=== PATIENT | male | born 1940 | race Caucasian/White ===

== ENCOUNTER 2020-10-03 11:39 | Inpatient (IN) ==
[2020-10-03] MEDS ORDERED: SODIUM CHLORIDE 0.9% 1000ML 1,000 ML IV ONE (11:54)
--- NOTE | 2020-10-03 12:19 | Emergency Department Note ---
Impression & Plan Pneumonia due to 2019-nCoV, Acute hypotension, Acute kidney injury ED Provider Note NAME: BRANT ALMONTE AGE: 79 SEX: M : 1940 ARRIVES VIA: Walk-In INFORMANT: Patient, ED PROVIDER(S): Aries Ayala DO CHIEF COMPLAINT: Generalized weakness HPI: The patient is a 79-year-old male who presented to the emergency department for multiple complaints. The patient was seen in our facility recently with similar complaints. At that time he was having mostly GI symptoms including loose bowel movements. He states that the symptoms have since improved. He was diagnosed with COVID-19 infection while he was in the emergency department. He has been trying to keep up with his p.o. intake but states has had decreased p.o. intake no appetite and generalized weakness. He states his bowel movements are not loose. He denies having any black or bloody bowel movements. He denies having any chest pain. He states he has noticed some dizziness especially upon standing. He is also noticed a fever. The patient was not seen by his primary care physician. He presented back to the emergency department for for more evaluation. ROS: See above HPI for pertinent positives & negatives. A total of 10 systems reviewed and were otherwise negative. PAST MEDICAL HISTORY: See Below PAST SURGICAL HISTORY: See Below FAMILY HISTORY: See Below SOCIAL HISTORY: See Below HOME MEDICATIONS: See Below ALLERGIES: See Below VITALS: See Below PHYSICAL EXAMINATION: GENERAL: Patient is awake alert in no acute distress patient is resting comfortably and showing no signs of anxiety EYES: The conjunctivae are clear. The pupils are round and reactive. EARS, NOSE, MOUTH AND THROAT: The nose is without any evidence of any deformity. Mucous members are dry. NECK: The neck is nontender and supple. RESPIRATORY: Diminished breath sounds are noted in the left lung field. There were rales in the right lung field. Mild tachypnea and conversational dyspnea was noted. CARDIOVASCULAR: Tachycardic and irregular rhythm was noted to auscultation. There is no definite murmur. GASTROINTESTINAL: The abdomen is soft. Abdomen is nontender. MUSCULOSKELETAL/EXTREMITIES: There is no evidence of gross deformity full range of motion is noted in the hips and shoulders. SKIN: There is no obvious evidence of any rash. There are no petechiae, pallor or cyanosis noted. NEUROLOGIC: Patient is awake alert and oriented x3 strength is symmetric patellar reflexes are 2+ bilaterally MEDICAL DECISION MAKING: The patient is a 79-year-old male who presented to the emergency department for an evaluation of generalized weakness. The patient was seen in our facility recently for similar complaints. He was diagnosed with COVID-19. At that time his symptoms were mostly GI in nature. He presents back to the emergency department today because of ongoing symptoms except now he is hypotensive and has some upper respiratory symptoms. The patient was found no signs of pneumonia on chest x-ray. He was treated with IV fluids IV antibiotics and IV Decadron. I discussed the patient's laboratory and radiographic studies with him. Because of the extent of his symptoms I discussed this case with the on- call [facility] hospitalist. They have agreed to evaluate the patient in the emergency department for further management and disposition. Triage Nursing notes reviewed. Prior medical records reviewed Vital Signs: reviewed and remarkable for hypotension Differential diagnosis: Infection, dehydration, metabolic abnormality, hypo/hyperglycemia, electrolyte disturbance, anemia, hypoxia, cardiac sources, intracerebral event, toxicologic, neurologic, as well as other pathologies. ER treatment provided: See below Diagnostics interpreted by me: ECG: EKG was obtained in the emergency department. My interpretation is atrial fibrillation at [address] segment abnormalities were noted. There was no PVCs. No previous tracing was available for comparison. Cardiac Monitoring: An order was placed for continuous cardiac monitoring. The monitor shows a rate of 95 bpm with sinus rhythm. Laboratory studies: As stated above and show below. Imaging studies: See below Consultation(s): 1410: I discussed this case with Dr. Noble he is agreed to evaluate the patient in the emergency department for further management and disposition. Past Med/Surg History Medical History (Updated 10/03/20 @ 14:09 by Aries Ayala DO) Atrial fibrillation BPH (benign prostatic hyperplasia) Chronic kidney disease STAGE III GERD (gastroesophageal reflux disease) Hx of polycystic kidney disease Hx of squamous cell carcinoma of skin Hyperlipidemia Hypertension Osteoarthritis HANDS AND NECK Surgical History Difficult intubation History of appendectomy History of colonoscopy History of herniorrhaphy RIGHT ING History of thyroidectomy, subtotal RIGHT LOBE AND ISTHMUS History of tonsillectomy Family History Father Family history of diabetes mellitus Social History Smoking Status: Never smoker Cigarettes Per Day: 27 YR; Hx Alcohol Use: Yes Alcohol type: beer and wine Hx Substance Use: No Preferred Language: Armenian Communication Ability: Effective Beliefs That Will Affect Care: None Current Living Situation: Spouse Feels Safe at Home: Yes Assistive Devices: Glasses Allergies Allergies Allergy/AdvReac Type Severity Reaction Status Date / Time poison oak extract AdvReac Intermediate Swelling Verified 10/03/20 13:47 of the Eye dermabond AdvReac Mild Redness of Uncoded 10/03/20 13:47 Skin Home Meds Home Medications Medication Instructions Recorded Confirmed cholecalciferol (vitamin D3) 25 mcg PO QDD 09/29/20 10/03/20 [Vitamin D3] finasteride [Proscar] 5 mg PO QAM 09/29/20 10/03/20 metoprolol succinate [Toprol XL] 25 mg PO QAM 09/29/20 10/03/20 Previous Rx's Medication Instructions Recorded ondansetron HCl [Zofran] 4 mg PO TID PRN 5 Days #15 tab 09/29/20 Results & Data (ED) Vital Signs Vital Signs - 24 hr 10/03/20 11:42 10/03/20 11:57 10/03/20 13:03 Pulse Rate 112 H Pulse Rate [Apical] 92 H Respiratory Rate 18 18 Respiratory Effort / Characteristics Non-Labored Spontaneous Respiratory Depth Normal Respiratory Pattern Regular Blood Pressure 82/53 L Blood Pressure [Left Arm] 94/57 L Blood Pressure Mean 62 Blood Pressure Mean [Left Arm] 69 Pulse Oximetry 92 94 95 Oxygen Delivery Method Room Air Room Air Room Air Sepsis Recent Fever Within 48 Hours Yes Sepsis New/Unexplained Change in Mental Status N/A Sepsis Action Taken by Nursing No Action Required Home Medications Current Medication List: was personally reviewed by me Laboratory Data Attestation: I reviewed the patient's lab results. Result diagrams: 10/03/20 12:16 10/03/20 12:16 Lab Results 10/03/20 10/03/20 10/03/20 Range/Units 12:16 12:16 12:16 WBC 6.57 (4.8-10.8) K/uL RBC 4.01 L (4.7-6.1) M/uL Hgb 13.0 L (14.0-18.0) g/dL Hct 35.9 L (42-52) % MCV 89.5 (80-100) fL MCH 32.4 (25-34) pg MCHC 36.2 H (32-36) g/dL RDW Std Deviation 43.5 (36.4-46.3) fL RDW Coeff of Fortino 13.2 (11.5-14.5) % Plt Count 238 (130-400) K/uL MPV 9.9 (7.4-10.4) fL Immature Gran % (Auto) 0.3 % Neut % (Auto) 82.8 % Lymph % (Auto) 12.8 % [place] % (Auto) 3.8 % Eos % (Auto) 0.0 % Baso % (Auto) 0.3 % Neut # (Auto) 5.44 (1.4-6.5) K/uL Lymph # (Auto) 0.84 L (1.2-3.4) K/uL [place] # (Auto) 0.25 (0.11-0.59) K/uL Eos # (Auto) 0.00 (0-0.5) K/uL Baso # (Auto) 0.02 (0-0.2) K/uL Immature Gran # (Auto) 0.02 (0.00-0.02) K/uL PT 11.7 (9.0-12.0) Seconds INR 1.1 (0.9-1.1) APTT 25.5 (21.0-31.0) Seconds PTT Ratio 0.9 Sodium 135 L (136-145) mmol/L Potassium 4.0 (3.5-5.1) mmol/L Chloride 106 (98-107) mmol/L Carbon Dioxide 21 (21-32) mmol/L Anion Gap 8.0 (3-11) BUN 43 H (7-18) mg/dl Creatinine 2.61 H (0.6-1.4) mg/dl Est Cr Clr Drug Dosing 23.7 ml/min Est GFR ( Amer) 25.9 Est GFR (Non-Af Amer) 22.3 BUN/Creatinine Ratio 16.4 (10-20) Glucose 125 H (70-99) mg/dl Lactate (0.4-2.0) mmol/L Calcium 9.1 (8.5-10.1) mg/dl Magnesium 2.2 (1.8-2.4) mg/dl Total Bilirubin 0.5 (0.2-1) mg/dl AST 45 H (15-37) U/L ALT 43 (12-78) U/L Alkaline Phosphatase 53 (45-117) U/L Troponin I 0.027 (0-0.045) ng/ml Total Protein 7.3 (6.4-8.2) gm/dl Albumin 2.8 L (3.4-5.0) gm/dl Globulin 4.5 H (2.5-4.0) gm/dl Albumin/Globulin Ratio 0.6 L (0.9-2) Procalcitonin (0-0.5) ng/ml 10/03/20 10/03/20 Range/Units 12:16 12:16 WBC (4.8-10.8) K/uL RBC (4.7-6.1) M/uL Hgb (14.0-18.0) g/dL Hct (42-52) % MCV (80-100) fL MCH (25-34) pg MCHC (32-36) g/dL RDW Std Deviation (36.4-46.3) fL RDW Coeff of Fortino (11.5-14.5) % Plt Count (130-400) K/uL MPV (7.4-10.4) fL Immature Gran % (Auto) % Neut % (Auto) % Lymph % (Auto) % [place] % (Auto) % Eos % (Auto) % Baso % (Auto) % Neut # (Auto) (1.4-6.5) K/uL Lymph # (Auto) (1.2-3.4) K/uL [place] # (Auto) (0.11-0.59) K/uL Eos # (Auto) (0-0.5) K/uL Baso # (Auto) (0-0.2) K/uL Immature Gran # (Auto) (0.00-0.02) K/uL PT (9.0-12.0) Seconds INR (0.9-1.1) APTT (21.0-31.0) Seconds PTT Ratio Sodium (136-145) mmol/L Potassium (3.5-5.1) mmol/L Chloride (98-107) mmol/L Carbon Dioxide (21-32) mmol/L Anion Gap (3-11) BUN (7-18) mg/dl Creatinine (0.6-1.4) mg/dl Est Cr Clr Drug Dosing ml/min Est GFR ( Amer) Est GFR (Non-Af Amer) BUN/Creatinine Ratio (10-20) Glucose (70-99) mg/dl Lactate 1.4 (0.4-2.0) mmol/L Calcium (8.5-10.1) mg/dl Magnesium (1.8-2.4) mg/dl Total Bilirubin (0.2-1) mg/dl AST (15-37) U/L ALT (12-78) U/L Alkaline Phosphatase (45-117) U/L Troponin I (0-0.045) ng/ml Total Protein (6.4-8.2) gm/dl Albumin (3.4-5.0) gm/dl Globulin (2.5-4.0) gm/dl Albumin/Globulin Ratio (0.9-2) Procalcitonin 1.06 H (0-0.5) ng/ml Administered Medications Discontinued Medications Sodium Chloride (Nss 1000ml) 1,000 mls @ 999 mls/hr IV .Q1H1M ONE Stop: 10/03/20 12:54 Last Infusion: 10/03/20 14:03 Dose: 0 mls/hr Documented by: [id number] Admin: 10/03/20 12:18 Dose: 999 mls/hr Documented by: [id number] Imaging Data Radiologist's Impression: Patient: BRANT ALMONTE Admit Date: 10/03/20 MR#: [id number] Address1: [address] [place] [address] Acct ID:[id number] Address2: Date: 1940 [facility] Zip: [place] [address] Age: 79 Location: ED Sex: M Room/Bed: Att Phy: Diagnosis: covid+, weakness, fever Deysi Phy: Jose Martinez III, MD Service Date: 10/03/20 Fam Phy: Interpreting Phy: Arnold Alatorre MD Admit Phy: Ordering Phy: Aries Ayala DO cc: ~ XR chest 1V portable HISTORY: Shortness of breath. SEPSIS COMPARISON: Chest 09/29/2020. FINDINGS: Peripheral hazy airspace opacity within the right midlung zone. Mild interstitial thickening persists. No pneumothorax. No pleural effusions. The heart remains mildly enlarged. IMPRESSION: 1. Hazy airspace opacity the right midlung zone. This may represent a viral pneumonia. 2. Cardiomegaly and mild interstitial thickening persists. ACT 112: Negative or not required by law. Electronically signed by: Arnold Alatorre M.D. 10/03/2020 1:10 PM Dictated: 10/03/20 1307 Transcribed: 10/03/20 1307 Blood Pressure Blood Pressure Findings: Low blood pressure Blood Pressure Disposition: further management by hospitalist Discharge Plan Visit Data Chief Complaint: Fever Stated Complaint: covid+, weakness, fever ED Provider: Aries Ayala Discharge Problem: Pneumonia due to 2019-nCoV, Acute hypotension, Acute kidney injury Patient Disposition: Being Evaluated by Hospitalist Condition: Good Forms Stand Alone Forms: [facility] Prescriptions Prescriptions: No Action metoprolol succinate [Toprol XL] 25 mg tablet extended release 24 hr 25 mg PO QAM RF: 0 finasteride [Proscar] 5 mg tablet 5 mg PO QAM RF: 0 cholecalciferol (vitamin D3) [Vitamin D3] 25 mcg (1,000 unit) Tablet 25 mcg PO QDD RF: 0 ondansetron HCl [Zofran] 4 mg tablet 4 mg PO TID PRN (Reason: nausea and vomiting) 5 Days Qty: 15 RF: 0 Referrals Referrals: Jose Martinez MD [Primary Care Provider] -
[2020-10-03 12:34] LABS: Basophils # (auto) 0.02 K/uL (0-0.2); Basophils % (auto) 0.3 %; Hematocrit (blood only) 35.9 % (42-52); Immature Granulocytes # (auto) 0.02 K/uL (0.00-0.02); Immature Granulocytes % (auto) 0.3 %; Lymphocytes # (auto) 0.84 K/uL (1.2-3.4); Lymphocytes % (auto) 12.8 %; Mean Corpuscular Hemoglobin 32.4 pg (25-34); Mean Corpuscular Hgb Conc 36.2 g/dL (32-36); Mean Corpuscular Volume 89.5 fL (80-100); Mean Platelet Volume 9.9 fL (7.4-10.4); Monocytes # (auto) 0.25 K/uL (0.11-0.59); Monocytes % (auto) 3.8 %; Neutrophils # (auto) 5.44 K/uL (1.4-6.5); Neutrophils % (auto) 82.8 %; Platelet Count 238 K/uL (130-400); RDW Coefficient of Variation 13.2 % (11.5-14.5); RDW Standard Deviation 43.5 fL (36.4-46.3); Red Blood Count 4.01 M/uL (4.7-6.1); White Blood Count 6.57 K/uL (4.8-10.8)
[2020-10-03 12:45] LABS: INR 1.1 (0.9-1.1); Partial Thromboplastin Ratio 0.9; Partial Thromboplastin Time 25.5 Seconds (21.0-31.0); Prothrombin Time 11.7 Seconds (9.0-12.0)
[2020-10-03 12:47] LABS: Albumin Level 2.8 gm/dl (3.4-5.0); BUN Creatinine Ratio 16.4 (10-20); Calcium 9.1 mg/dl (8.5-10.1); Creatinine Clr Calc Pharmacy 23.7 ml/min; Est GFR (African American) 25.9; Est GFR (Non-African American) 22.3; Magnesium 2.2 mg/dl (1.8-2.4)
[2020-10-03 12:52] LABS: Albumin Globulin Ratio 0.6 (0.9-2); Bilirubin,Total 0.5 mg/dl (0.2-1); Globulin 4.5 gm/dl (2.5-4.0); Total Protein 7.3 gm/dl (6.4-8.2); Troponin I 0.027 ng/ml (0-0.045)
--- NOTE | 2020-10-03 13:11 | XRay Report ---
XR chest 1V portable HISTORY: Shortness of breath. SEPSIS COMPARISON: Chest 09/29/2020. FINDINGS: Peripheral hazy airspace opacity within the right midlung zone. Mild interstitial thickenin g persists. No pneumothorax. No pleural effusions. The heart remains mildly enlarged. IMPRESSION: 1. Hazy airspace opacity the right midlung zone. This may represent a viral pneumonia. 2. Cardiomegaly and mild interstitial thickening persists. ACT 112: Negative or not required by law. Electronically signed by: Arnold Alatorre M.D. 10/03/2020 1:10 PM
[2020-10-03] MEDS ORDERED: cefTRIAXone SODIUM 1,000 MG/50 ML BAG IV STA (13:31)
[2020-10-03] MEDS ORDERED: DEXAMETHASONE SOD INJ 10 MG/ML VIAL IV ONE (13:31)
[2020-10-03] MEDS ORDERED: SODIUM CHLORIDE 0.9% 1000ML 500 ML IV ONE (13:31)
--- NOTE | 2020-10-03 18:16 | History & Physical Report ---
Date of Service October 03, 2020 Assessment & Plan (1) COVID-19: Present on admission with weakness and dizziness COVID 19 positive on 09/29 CXR showed hazy airspace opacity the right midlung zone. Procalcitonin elevated Received IV Rocephin and Dexamethasone on admission Saturated well on RA. Denied any SOB Does not meet criteria for Remdesivir due to renal failure and no hypoxia Will hold for any additional steroid or plasma convalescent for now since pt saturated well on RA Will reassess in am and if pt desaturates or requires oxygen, will start on steroid Pt agreed to receive the Plasma convalescent if needs Will continue Rocephin IV and adding doxycycline Follow up blood cx collected in the ER Will monitor inflammatory markers such as ESR, CRP, Ferritin, LDH Continue monitor closely MARGARITA on CKD stage 4 Creatinine on admission 2.6, baseline 2-2.3 Received IVF, will continue IVF hydration Will avoid nephrotoxic agents Continue monitor BMP Chronic Afib Rate controlled on Metoprolol Not on anticoagulant since pt declined it Continue monitor Elevated glucose Will check Hba1c in am DVT px will adjust Lovenox dose to 30mg subq due to CKD 4 (discussed with pharmacy) CODE status DNR History of Present Illness Chief Complaint: Dizziness/Weakness Primary Care Provider: Jose Martinez MD 79-year-old male with past medical history of A. fib, CKD stage IV, BPH, hypertension, presented to the ER with symptom of weakness and dizziness. Patient was recently in the ER on Tuesday due to GI symptom of nausea and diarrhea then he was diagnosed with COVID-19. He said that he was giving IV fluid and felt better and discharged home. He said that he was continued to have diarrhea but today he felt weak associated with dizziness while walking. He said that he has been having chills and sweating. He said that his appetite has been poor. He said that he has a dry cough but denies any other respiratory symptoms such as shortness of breath. He was hypotensive on admission with BP in the 80's systolic. CXR showed hazy airspace opacity the right midlung zone. Denies any chest pain, palpitation, fever and SOB. Allergies Allergy/AdvReac Type Severity Reaction Status Date / Time poison oak extract AdvReac Intermediate Swelling Verified 10/03/20 13:47 of the Eye dermabond AdvReac Mild Redness of Uncoded 10/03/20 13:47 Skin Home Medications Medication Instructions Recorded Confirmed Type cholecalciferol (vitamin D3) 25 mcg PO QDD 09/29/20 10/03/20 History [Vitamin D3] finasteride [Proscar] 5 mg PO QAM 09/29/20 10/03/20 History metoprolol succinate [Toprol XL] 25 mg PO QAM 09/29/20 10/03/20 History ondansetron HCl [Zofran] 4 mg PO TID PRN 5 Days #15 tab 09/29/20 10/03/20 Rx Past Med/Surg History Medical History (Updated 10/03/20 @ 14:09 by Aries Ayala DO) Atrial fibrillation BPH (benign prostatic hyperplasia) Chronic kidney disease STAGE III GERD (gastroesophageal reflux disease) Hx of polycystic kidney disease Hx of squamous cell carcinoma of skin Hyperlipidemia Hypertension Osteoarthritis HANDS AND NECK Surgical History Difficult intubation History of appendectomy History of colonoscopy History of herniorrhaphy RIGHT ING History of thyroidectomy, subtotal RIGHT LOBE AND ISTHMUS History of tonsillectomy Family History Father Family history of diabetes mellitus Social History Smoking Status: Never smoker Cigarettes Per Day: 27 YR; Hx Alcohol Use: Yes Alcohol type: beer and wine Hx Substance Use: No Preferred Language: Georgian Communication Ability: Effective Beliefs That Will Affect Care: None Current Living Situation: Spouse Feels Safe at Home: Yes Assistive Devices: Glasses Review of Systems Review of Systems: All systems reviewed & are unremarkable except as noted in HPI & below Physical Exam Physical Exam: General- No acute distress Head- atraumatic Eyes- PERRL, EOMI, ENT- oropharynx clear Neck- supple, no JVD Lungs- clear to auscultation Heart- irregular rhythm; no murmur Abdomen- normal bowel sounds, soft, nontender Extremities- no calf tenderness Neuro- alert, oriented x 3; PERRL, EOMI; no facial palsy; no dysarthria Skin- warm & dry Results & Data Results & Data ([facility]) Vital Signs (Past 12 Hours) Vital Signs Pulse Pulse Resp BP BP Pulse Ox 10/03/20 15:30 94 10/03/20 14:13 92 H 107/70 94 10/03/20 13:03 92 H 18 94/57 L 95 10/03/20 11:57 94 10/03/20 11:42 112 H 18 82/53 L 92 Diagnostic Findings XR chest 1V portable HISTORY: Shortness of breath. SEPSIS COMPARISON: Chest 09/29/2020. FINDINGS: Peripheral hazy airspace opacity within the right midlung zone. Mild interstitial thickening persists. No pneumothorax. No pleural effusions. The heart remains mildly enlarged. IMPRESSION: 1. Hazy airspace opacity the right midlung zone. This may represent a viral pneumonia. 2. Cardiomegaly and mild interstitial thickening persists. ACT 112: Negative or not required by law. Electronically signed by: Arnold Alatorre M.D. 10/03/2020 1:10 PM Dictated: 10/03/20 1307Transcribed: 10/03/20 1307
[2020-10-03 19:36] LABS: Appearance Urine Clear (Clear); Bacteria Urine Automated Negative (Negative); Bilirubin Urine Negative (Negative); Blood Urine Trace (Negative); Color Urine Yellow; Epithelial Cell Urine Auto 20-30 /lpf (0-5); Glucose Urine UA Negative (Negative); Ketones Urine Trace (Negative); Leukocyte Esterase Urine Negative (Negative); Nitrite Urine Negative (Negative); Protein Urine 2+ (Negative); RBC Urine Automated 0-4 /hpf (0-4); Specific Gravity Urine 1.016 (1.000-1.030); Urobilinogen Urine Negative (Negative)
[2020-10-04] MEDS: SODIUM CHLORIDE 0.9% 1000ML 1,000 ML IV SCH ×2 (01:01→13:59)
[2020-10-04] MEDS ORDERED: ONDANSETRON 4 MG OD TAB PO PRN (01:12)
[2020-10-04] MEDS ORDERED: DOXYCYCLINE HYCLATE 100 MG in DEXTROSE 5% 100 ML IV ONE (01:15)
[2020-10-04] MEDS: CHOLECALCIFEROL 1,000 UNITS 25 MCG TAB PO SCH ×2 (02:09→15:46)
--- NOTE | 2020-10-04 06:20 | Electrocardiogram Report ---
Test Reason : Blood Pressure : / mmHG Vent. Rate : 100 BPM Atrial Rate : 104 BPM P-R Int : 000 ms QRS Dur : 092 ms QT Int : 320 ms P-R-T Axes : 000 065 019 degrees QTc Int : 412 ms Atrial fibrillation Incomplete right bundle branch block Abnormal ECG When compared with ECG of 29-SEP-2020 17:48, No significant change was found Confirmed by Evgeny Herrera ([id number]) on 10/04/2020 6:20:17 AM Referred By: REFERRED SELF Confirmed By:Evgeny Herrera
[2020-10-04 06:26] LABS: Hematocrit (blood only) 34.4 % (42-52); Hemoglobin 12.5 g/dL (14.0-18.0); Mean Corpuscular Hemoglobin 33.1 pg (25-34); Mean Corpuscular Hgb Conc 36.3 g/dL (32-36); Mean Platelet Volume 9.8 fL (7.4-10.4); Platelet Count 254 K/uL (130-400); RDW Coefficient of Variation 13.4 % (11.5-14.5); RDW Standard Deviation 44.9 fL (36.4-46.3); Red Blood Count 3.78 M/uL (4.7-6.1); White Blood Count 5.13 K/uL (4.8-10.8)
[2020-10-04 07:02] LABS: Albumin Level 2.5 gm/dl (3.4-5.0); BUN Creatinine Ratio 18.2 (10-20); Calcium 8.4 mg/dl (8.5-10.1); Creatinine Clr Calc Pharmacy 27.1 ml/min; Est GFR (African American) 31.7; Est GFR (Non-African American) 27.3; Potassium 4.6 mmol/L (3.5-5.1)
[2020-10-04 07:21] LABS: Albumin Globulin Ratio 0.6 (0.9-2); Bilirubin,Total 0.3 mg/dl (0.2-1); C Reactive Protein 13.8 mg/dl (0-0.29); Ferritin 2541.2 ng/ml (8-388); Globulin 4.5 gm/dl (2.5-4.0)
[2020-10-04 07:30] LABS: Estimated Average Glucose 131 mg/dl; Hemoglobin A1C 6.2 % (4.5-5.6)
[2020-10-04] MEDS: FINASTERIDE 5 MG TAB PO SCH (07:59)
[2020-10-04] MEDS: METOPROLOL SUCC 25MG EXT REL TAB PO SCH (07:59)
[2020-10-04] MEDS: ENOXAPARIN INJ 30 MG/0.3 ML SYR SQ SCH (08:00)
[2020-10-04] MEDS: dexAMETHasone 1 MG TAB PO SCH (10:06)
[2020-10-04] MEDS: cefTRIAXone SODIUM 2,000 MG in DEXTROSE 5% 50 ML IV SCH (14:23)
[2020-10-04] MEDS: DOXYCYCLINE HYCLATE 100 MG in DEXTROSE 5% 100 ML IV SCH (15:49)
--- NOTE | 2020-10-04 18:57 | Hospitalist Progress Note ---
Date of Service October 04, 2020 Assessment & Plan (1) Pneumonia due to 2019-nCoV: Presented on admission with weakness and dizziness. Symptoms have been ongoing for approximately 1 to 1-1/2 weeks. Patient appears to have been worse then gotten somewhat better now have gotten worse in the last few days. He reports diarrhea having improved/resolved. He does not meet criteria for remdesivir due to renal failure. Although there is not an oxygen requirement he is worse clinically and within approximately 10 days of symptom onset. He also is hospitalized with a pneumonia, so we are continuing Decadron. We discussed the risks and benefits of convalescent plasma and decided against it. We will continue Rocephin and doxycycline antibiotics although this is likely a viral pneumonia. Will trend inflammatory markers including CRP and will trend pro calcitonin every few days. Will monitor clinical progress. Continue supportive care. (2) Acute renal failure (ARF): Resolved, Stage IV CKD at baseline per his report and per recent Nephrology note in outpatient records. Baseline creatinine is 2-2.3 and he is currently there now. IVF were stopped and he is tolerating PO. Cont to monitor on bloodwork. (3) CKD (chronic kidney disease), stage IV: Plan as above. Avoid nephrotoxic medications and renally dose medications as needed. (4) Atrial fibrillation: On aspirin, refused anticoagulation in the past. Has seen Dr. Lomeli from electrophysiology. He is rate controlled. He is asymptomatic. Continue current care. (5) DVT prophylaxis: Lovenox 30mg daily DNR/DNI Dispo-to home when medically stable and clinically improved. Mariya Salcedo DO [facility] Hospitalist Admission and Anticipated Discharge Date Admission Date: October 03, 2020 Subjective cc: covid pneumonia -patient reports feeling somewhat better since admission -we discussed in detail the therapies available for COVID and reviewed the history of hydroxychloroquine use -he reports fatigue but no pain or SOB -tolerating PO, afebrile and not requiring oxygen supplementation at this time. Review of Systems Review of Systems: All systems reviewed & are unremarkable except as noted in Subjective Physical Exam Physical Exam: CONSTITUTIONAL: WNWD, vitals as above, generally well- appearing, but appears run down EYES: normal conjunctivae, no scleral icterus ENT: external ear and nose normal, oropharynx clear, MMM RESPIRATORY: clear to auscultation bilaterally, no crackles, rales or wheezes, normal respiratory effort CARDIOVASCULAR: regular rate and rhythm, S1 and 2 heard without murmurs, gallops or rubs, no JVD, no peripheral edema GASTROINTESTINAL: soft, nontender, nondistended, no guarding MUSCULOSKELETAL: strength 5/5 throughout, head is normocephalic and atraumatic SKIN: warm and dry NEUROLOGIC: CN 2-12 grossly intact, normal cognition, normal speech, no tremor, no gross focal deficits. PSYCHIATRIC: alert cooperative and oriented to person, place and time. = Results & Data Results & Data ([facility]) Vital Signs (Past 12 Hours) Vital Signs Temp Pulse Resp BP Pulse Ox 10/04/20 16:09 36.7 C 91 H 16 108/69 96 10/04/20 07:42 36.7 C 97 H 18 119/73 96 Laboratory Results Short CBC 10/04/20 Range/Units 05:29 WBC 5.13 (4.8-10.8) K/uL Hgb 12.5 L (14.0-18.0) g/dL Hct 34.4 L (42-52) % Plt Count 254 (130-400) K/uL BMP 10/04/20 05:29 Sodium 136 Potassium 4.6 Chloride 107 Carbon Dioxide 21 BUN 40 H Creatinine 2.21 H D Glucose 133 H Calcium 8.4 L Liver Function 10/04/20 Range/Units 05:29 Total Bilirubin 0.3 (0.2-1) mg/dl AST 37 (15-37) U/L ALT 38 (12-78) U/L Alkaline Phosphatase 51 (45-117) U/L Albumin 2.5 L (3.4-5.0) gm/dl Urine 10/03/20 Range/Units 19:25 Urine Color Yellow Urine Appearance Clear (Clear) Urine pH 5.0 (4.5-7.5) Ur Specific [place] 1.016 (1.000-1.030) Urine Protein 2+ H (Negative) Urine Glucose (UA) Negative (Negative) Medications Administered Current Inpatient Medications Dexamethasone (Dexamethasone 1 Mg Tab) 6 mg PO DAILY LISANDRA Stop: 11/03/20 09:59 Last Admin: 10/04/20 10:06 Dose: 6 mg Documented by: Enoxaparin Sodium (Enoxaparin Inj 30 Mg/0.3 Ml Syr) 30 mg SQ QAM LISANDRA Stop: 11/03/20 08:59 Last Admin: 10/04/20 08:00 Dose: 30 mg Documented by: Finasteride (Finasteride 5 Mg Tab) 5 mg PO [facility] Stop: 11/03/20 08:59 Last Admin: 10/04/20 07:59 Dose: 5 mg Documented by: Ceftriaxone Sodium 2,000 mg/ (Dextrose) 70 mls @ 100 mls/hr IV Q24H [facility]; Protocol Stop: 10/11/20 13:59 Last Infusion: 10/04/20 15:48 Dose: Infused Documented by: Doxycycline Hyclate 100 mg/ (Dextrose) 110 mls @ 50 mls/hr IV Q12H [facility] Stop: 10/11/20 15:59 Last Admin: 10/04/20 15:49 Dose: 50 mls/hr Documented by: Metoprolol Succinate (Metoprolol Succ 25mg Ext Rel Tab) 25 mg PO [facility] Stop: 11/03/20 08:59 Last Admin: 10/04/20 07:59 Dose: 25 mg Documented by: Ondansetron HCl (Ondansetron 4 Mg Od Tab) 4 mg PO TID PRN PRN Reason: nausea and vomiting Stop: 11/03/20 01:11 Vitamin D (Cholecalciferol 1,000 Units 25 Mcg Tab) 1,000 units PO QDD [facility] Stop: 11/03/20 01:00 Last Admin: 10/04/20 15:46 Dose: 1,000 units Documented by:
[2020-10-05] MEDS: DOXYCYCLINE HYCLATE 100 MG in DEXTROSE 5% 100 ML IV SCH ×2 (04:50→16:22)
[2020-10-05] MEDS: ENOXAPARIN INJ 30 MG/0.3 ML SYR SQ SCH (08:03)
[2020-10-05] MEDS: dexAMETHasone 1 MG TAB PO SCH (08:03)
[2020-10-05] MEDS: METOPROLOL SUCC 25MG EXT REL TAB PO SCH (08:03)
[2020-10-05] MEDS: FINASTERIDE 5 MG TAB PO SCH (08:03)
[2020-10-05 11:00] LABS: Calcium 9.3 mg/dl (8.5-10.1); Creatinine Clr Calc Pharmacy 25.4 ml/min; Est GFR (African American) 29.2; Est GFR (Non-African American) 25.2; Potassium 4.2 mmol/L (3.5-5.1)
[2020-10-05] MEDS: cefTRIAXone SODIUM 2,000 MG in DEXTROSE 5% 50 ML IV SCH (13:22)
--- NOTE | 2020-10-05 14:36 | Hospitalist Progress Note ---
Date of Service October 05, 2020 Assessment & Plan (1) Pneumonia due to 2019-nCoV: Presented on admission with weakness and dizziness. Symptoms have been ongoing for approximately 1 to 1-1/2 weeks. Patient appears was better then got worse in the last few days. He reports diarrhea having improved/resolved. He did not meet criteria for remdesivir due to renal failure. Although there was not an oxygen requirement he was worse clinically and within approximately 10 days of symptom onset so decadron started. He also is hospitalized with a pneumonia, so we are continuing Decadron. We discussed the risks and benefits of convalescent plasma and decided against it. We will continue Rocephin and doxycycline antibiotics although this is likely a viral pneumonia. Will trend inflammatory markers including CRP and will trend pro calcitonin every few days. Will monitor clinical progress. Continue supportive care. (2) Acute renal failure (ARF): Resolved, Stage IV CKD at baseline per his report and per recent Nephrology note in outpatient records. Baseline creatinine is 2-2.3 and he is currently there now. IVF were stopped and he is tolerating PO. Cont to monitor on bloodwork. (3) CKD (chronic kidney disease), stage IV: Plan as above. Avoid nephrotoxic medications and renally dose medications as needed. (4) Atrial fibrillation: On aspirin, refused anticoagulation in the past. Has seen Dr. Lomeli from electrophysiology. He is rate controlled. He is asymptomatic. Continue current care. (5) DVT prophylaxis: Lovenox 30mg daily DNR/DNI Dispo-to home when medically stable and clinically improved. Mariya [facility]ced[facility] and [facility]tic[facility]ated Discharge Date Admission Date: October 03, 2020 Subjective cc: covid pneumonia -patient reports feeling somewhat better since admission -afebrile, tolerating PO -had a shower this morning -ambulating some but still reports significant weakness -not requiring oxygen -no increased respiratory symptoms overnight. Review of Systems Review of Systems: All systems reviewed & are unremarkable except as noted in Subjective Physical Exam Physical Exam: CONSTITUTIONAL: WNWD, vitals as above, generally well- appearing, NAD ENT: external ear and nose normal, oropharynx clear, MMM RESPIRATORY: clear to auscultation bilaterally, no crackles, rales or wheezes, normal respiratory effort CARDIOVASCULAR: regular rate and rhythm, S1 and 2 heard without murmurs, gallops or rubs, no JVD, no peripheral edema GASTROINTESTINAL: soft, nontender, nondistended, no guarding MUSCULOSKELETAL: strength 5/5 throughout, head is normocephalic and atraumatic SKIN: warm and dry NEUROLOGIC: CN 2-12 grossly intact, normal cognition, normal speech, no tremor, no gross focal deficits. PSYCHIATRIC: alert cooperative and oriented to person, place and time. Results & Data Results & Data ([facility]) Vital Signs (Past 12 Hours) Vital Signs Temp Pulse Resp BP Pulse Ox 10/05/20 06:47 36.5 C 90 16 108/80 94 Laboratory Results [facility] 10/05/20 10:12 Sodium 137 Potassium 4.2 Chloride 106 Carbon Dioxide 22 BUN 45 H Creatinine 2.36 H Glucose 165 H Calcium 9.3 Medications Administered Current Inpatient Medications Dexamethasone (Dexamethasone 1 Mg Tab) 6 mg PO DAILY [facility] Stop: 11/03/20 09:59 Last Admin: 10/05/20 08:03 Dose: 6 mg Documented by: Enoxaparin Sodium (Enoxaparin Inj 30 Mg/0.3 Ml Syr) 30 mg SQ [facility] Stop: 11/03/20 08:59 Last Admin: 10/05/20 08:03 Dose: 30 mg Documented by: Finasteride (Finasteride 5 Mg Tab) 5 mg PO [facility] Stop: 11/03/20 08:59 Last Admin: 10/05/20 08:03 Dose: 5 mg Documented by: Ceftriaxone Sodium 2,000 mg/ (Dextrose) 70 mls @ 100 mls/hr IV Q24H [facility]; Protocol Stop: 10/11/20 13:59 Last Infusion: 10/05/20 14:05 Dose: Infused Documented by: Doxycycline Hyclate 100 mg/ (Dextrose) 110 mls @ 50 mls/hr IV Q12H [facility] Stop: 10/11/20 15:59 Last Infusion: 10/05/20 07:20 Dose: Infused Documented by: Metoprolol Succinate (Metoprolol Succ 25mg Ext Rel Tab) 25 mg PO [facility] Stop: 11/03/20 08:59 Last Admin: 10/05/20 08:03 Dose: 25 mg Documented by: Ondansetron HCl (Ondansetron 4 Mg Od Tab) 4 mg PO TID PRN PRN Reason: nausea and vomiting Stop: 11/03/20 01:11 Vitamin D (Cholecalciferol 1,000 Units 25 Mcg Tab) 1,000 units PO QDD [facility] Stop: 11/03/20 01:00 Last Admin: 10/04/20 15:46 Dose: 1,000 units Documented by:
[2020-10-05] MEDS: CHOLECALCIFEROL 1,000 UNITS 25 MCG TAB PO SCH (16:23)
[2020-10-06] MEDS: DOXYCYCLINE HYCLATE 100 MG in DEXTROSE 5% 100 ML IV SCH (04:26)
[2020-10-06 08:32] LABS: Hematocrit (blood only) 34.7 % (42-52); Hemoglobin 12.4 g/dL (14.0-18.0); Mean Corpuscular Hemoglobin 32.4 pg (25-34); Mean Corpuscular Hgb Conc 35.7 g/dL (32-36); Mean Corpuscular Volume 90.6 fL (80-100); Mean Platelet Volume 9.7 fL (7.4-10.4); Platelet Count 359 K/uL (130-400); RDW Coefficient of Variation 13.6 % (11.5-14.5); RDW Standard Deviation 45.1 fL (36.4-46.3); Red Blood Count 3.83 M/uL (4.7-6.1); White Blood Count 10.05 K/uL (4.8-10.8)
[2020-10-06] MEDS: dexAMETHasone 1 MG TAB PO SCH (08:39)
[2020-10-06] MEDS: ENOXAPARIN INJ 30 MG/0.3 ML SYR SQ SCH (08:39)
[2020-10-06] MEDS: METOPROLOL SUCC 25MG EXT REL TAB PO SCH (08:41)
[2020-10-06] MEDS: FINASTERIDE 5 MG TAB PO SCH (08:41)
[2020-10-06 09:05] LABS: BUN Creatinine Ratio 24.8 (10-20); C Reactive Protein 2.39 mg/dl (0-0.29); Calcium 8.9 mg/dl (8.5-10.1); Creatinine Clr Calc Pharmacy 31.7 ml/min; Est GFR (African American) 38.3; Potassium 4.3 mmol/L (3.5-5.1)
[2020-10-06] MEDS: cefTRIAXone SODIUM 2,000 MG in DEXTROSE 5% 50 ML IV SCH (14:01)
--- NOTE | 2020-10-06 15:03 | Discharge Summary ---
Date of Service October 06, 2020 Admission HPI Per Admitting Provider 79-year-old male with past medical history of A. fib, CKD stage IV, BPH, hypertension, presented to the ER with symptom of weakness and dizziness. Patient was recently in the ER on Tuesday due to GI symptom of nausea and diarrhea then he was diagnosed with COVID-19. He said that he was giving IV fluid and felt better and discharged home. He said that he was continued to have diarrhea but today he felt weak associated with dizziness while walking. He said that he has been having chills and sweating. He said that his appetite has been poor. He said that he has a dry cough but denies any other respiratory symptoms such as shortness of breath. He was hypotensive on admission with BP in the 80's systolic. CXR showed hazy airspace opacity the right midlung zone. Denies any chest pain, palpitation, fever and SOB. Admission Exam Per Admitting Provider General- No acute distress Head- atraumatic Eyes- PERRL, EOMI, ENT- oropharynx clear Neck- supple, no JVD Lungs- clear to auscultation Heart- irregular rhythm; no murmur Abdomen- normal bowel sounds, soft, nontender Extremities- no calf tenderness Neuro- alert, oriented x 3; PERRL, EOMI; no facial palsy; no dysarthria Skin- warm & dry Principal Diagnosis Pneumonia 2/2 covid-19 virus Acute renal failure CKD Stage IV Chronic atrial fibrillation Discharge Exam CONSTITUTIONAL: WNWD, vitals as above, generally well-appearing, NAD ENT: external ear and nose normal, oropharynx clear, MMM RESPIRATORY: clear to auscultation bilaterally, no crackles, rales or wheezes, normal respiratory effort CARDIOVASCULAR: regular rate and rhythm, S1 and 2 heard without murmurs, griffin ps or rubs, no JVD, no peripheral edema GASTROINTESTINAL: soft, nontender, nondistended, no guarding MUSCULOSKELETAL: strength 5/5 throughout, head is normocephalic and atraumatic SKIN: warm and dry NEUROLOGIC: CN 2-12 grossly intact, normal cognition, normal speech, no tremor, no gross focal deficits. PSYCHIATRIC: alert cooperative and oriented to person, place and time. Discharge Data Allergies Allergy/AdvReac Type Severity Reaction Status Date / Time poison oak extract AdvReac Intermediate Swelling Verified 10/03/20 13:47 of the Eye dermabond AdvReac Mild Redness of Uncoded 10/03/20 13:47 Skin Consultations 10/03/20 14:08 ED Decision to Admit Stat Hospital Course (1) Pneumonia due to 2019-nCoV: (2) Acute renal failure (ARF): (3) CKD (chronic kidney disease), stage IV: The patient is a 79-year-old man who was admitted with Covid pneumonia and elevated procalcitonin. [facility] started on IV Rocephin and dexamethasone. He did not meet criteria for remdesivir due to renal failure and no evidence of hypoxia. Convalescent plasma was also not entertained as he was oxygenating well on room air. He is renal function improved to baseline with IV fluid resuscitation. He remained at baseline mental status entire hospitalization. Doxycycline was added to Rocephin for broad-spectrum coverage of pneumonia, however, this was felt to be most likely a viral pneumonia. He continued to improve with treatment and his CRP trended down from 13.8-2.39. At time of discharge she was mentating and ambulating at baseline and tolerating p.o. He was hemodynamically stable and afebrile and was discharged in stable condition with close primary care follow- up recommended. Total Time Total Time Spent Total Time Spent (In Minutes): 30 Total Time Includes: Examination of the Patient, Discharge Planning, Medication Reconciliation and Communication With Other Providers Discharge Plan Discharge Items Patient Disposition: Home - Self-Care Reason For Visit: WEAKNESS/DIZZINESS Discharge Diagnosis: Pneumonia 2/2 covid-19 virus Acute renal failure CKD Stage IV Chronic atrial fibrillation Condition on Discharge: Good Activity: Resume your previous activity Non-emergency contact: Primary Care Provider Call non-emergency contact if: you have any medication questions, your symptoms worsen and you have a fever Follow-up/Referrals: Jose Martinez MD [Primary Care Provider] - (Date & Time 10/09/2020 2:00 PM Provider Jose Martinez III, MD [facility] PLEASE NOTE THAT THIS IS A TELEPHONE APPOINTMENT. YOUR PHYSICIAN WILL CALL YOU AT THE APPOINTMENT TIME. IF YOU HAVE ANY QUESTIOS, PLEASE CALL ) Diet: Regular Addtl Attending Provider Instructions: Please take all medications as instructed on the discharge list below. It is recommended you have a repeat chest xray in 4 weeks to ensure complete resolution of your pneumonia. Please follow-up with your primary care provider (PCP) within one week to ensure you are doing well since discharge. Per CDC and [facility] guidelines, it is mandatory that you isolate in your home for 10 days after your symptoms first began. Please don't come off isolation unless you are fever-free for 3 days and your symptoms are improving. Please see information below regarding home isolation. It was a pleasure taking care of you! Please call if you have any questions or problems. You can reach a [facility] hospitalist on duty at [facility] 24 hours a day by calling [phone]. Take care of yourself. Mariya Salcedo DO [facility] Hospitalist Addtl Paid Intern Provider Instructions: Home Isolation COVID-19 Instructions The following information about Home Isolation is from the CDC Website: https://www.cdc.gov/coronavirus/2019-ncov/hcp/klqprdoa-uyxfcih-hdctkd.html Stay home except to get medical care People who are mildly ill with COVID-19 are able to isolate at home during their illness. You should restrict activities outside your home, except for getting medical care. Do not go to work, school, or public areas. Avoid using public transportation, ride-sharing, or taxis. Separate yourself from other people and animals in your home People: As much as possible, you should stay in a specific room and away from other people in your home. Also, you should use a separate bathroom, if available. Animals: You should restrict contact with pets and other animals while you are sick with COVID-19, just like you would around other people. Although there have not been reports of pets or other animals becoming sick with COVID-19, it is still recommended that people sick with COVID-19 limit contact with animals u ntil more information is known about the virus. When possible, have another member of your household care for your animals while you are sick. If you are sick with COVID-19, avoid contact with your pet, including petting, snuggling, being kissed or licked, and sharing food. If you must care for your pet or be around animals while you are sick, wash your hands before and after you interact with pets and wear a face mask. Call ahead before visiting your doctor If you have a medical appointment, call the healthcare provider and tell them that you have or may have COVID-19. This will help the healthcare providers office take steps to keep other people from getting infected or exposed. Wear a face mask You should wear a face mask when you are around other people (e.g., sharing a room or vehicle) or pets and before you enter a healthcare providers office. If you are not able to wear a face mask (for example, because it causes trouble richard athing), then people who live with you should not stay in the same room with you, or they should wear a face mask if they enter your room. Cover your coughs and sneezes Cover your mouth and nose with a tissue when you cough or sneeze. Throw used tissues in a lined trash can. Immediately wash your hands with soap and water for at least 20 seconds or, if soap and water are not available, clean your hands with an alcohol-based hand downstream biomanufacturing technician that contains at least 60% alcohol. Clean your hands often Wash your hands often with soap and water for at least 20 seconds, especially after blowing your nose, coughing, or sneezing; going to the bathroom; and before eating or preparing food. If soap and water are not readily available, use an alcohol-based hand downstream biomanufacturing technician with at least 60% alcohol, covering all surfaces of your hands and rubbing them together until they feel dry. Soap and water are the best option if hands are visibly dirty. Avoid touching your eyes, nose, and mouth with unwashed hands. Avoid sharing personal household items You should not share dishes, drinking glasses, cups, eating utensils, towels, or bedding with other people or pets in your home. After using these items, they should be washed thoroughly with soap and water. Clean all high-touch surfaces everyday High touch surfaces include counters, tabletops, doorknobs, bathroom fixtures, toilets, phones, keyboards, tablets, and bedside tables. Also, clean any surfaces that may have blood, stool, or body fluids on them. Use a household cleaning spray or wipe, according to the label instructions. Labels contain instructions for safe and effective use of the cleaning product including precautions you should take when applying the product, such as wearing gloves and making sure you have good ventilation during use of the product. Monitor your symptoms Seek prompt medical attention if your illness is worsening (e.g., difficulty breathing).Beforeseeking care, call your healthcare provider and tell them that you have, or are being evaluated for, COVID-19. Put on a face mask before you enter the facility. These steps will help the healthcare providers office to keep other people in the office or waiting room from getting infected or exposed. Ask your healthcare provider to call the local or state health department. Persons who are placed under active monitoring or facilitated self- monitoring should follow instructions provided by their local health department or occupational health professionals, as appropriate. When working with your local health department check their available hours. If you have a medical emergency and need to call 911, notify the dispatch personnel that you have, or are being evaluated for COVID-19. If possible, put on a face mask before emergency medical services arrive. Discontinuing home isolation Patients with confirmed COVID-19 should remain under home isolation precautions until the risk of secondary transmission to others is thought to be low. The decision to discontinue home isolation precautions should be made on a [id number] basis, in consultation with healthcare providers and community health and [facility] health departments. Pending Studies at Discharge: No Stand-Alone Forms: My [facility] Medications and DC Order Prescriptions: New dexamethasone [Decadron] 6 mg tablet 6 mg PO DAILY Qty: 3 RF: 0 cefdinir 300 mg capsule 300 mg PO DAILY Qty: 3 RF: 0 doxycycline hyclate 100 mg capsule 100 mg PO BID Qty: 6 RF: 0 Continued metoprolol succinate [Toprol XL] 25 mg tablet extended release 24 hr 25 mg PO QAM RF: 0 finasteride [Proscar] 5 mg tablet 5 mg PO QAM RF: 0 cholecalciferol (vitamin D3) [Vitamin D3] 25 mcg (1,000 unit) Tablet 25 mcg PO QDD RF: 0 Discharge Orders: Discharge Order (Routine); Ordered 10/06/20 Ordered By: Mariya Lennon/Other Patient Handouts: A1C Admission Data Admit Date/Time: 10/03/20 16:33 Attending Provider: Mariya Salcedo Admit Provider: No Noble Primary Care Provider: Jose Martinez Other Providers: No Noble Other Interventions: Discharge Summary Assessment (RN) Last Done: 10/06/20 15:40
== END 2020-10-06 16:21 | disposition home or self-care (01) | DRG 177 ==
LOC: ED 11:39 → 3E 16:33 → SUATTDRO 16:33 → 3E 23:56